=== PATIENT | male | born 1985 | race Caucasian/White ===

== ENCOUNTER 2021-07-19 18:18 | Inpatient (IN) | payer OTHER ==
[~2021-07-19] VITALS: Ht 177.8 cm; Wt 77.9 kg
[2021-07-19] MEDS ORDERED: MAG HYDROX/AL HYDROX/SIMETH 30 ML SUSP UDCUP PO ONE (19:30)
[2021-07-19] MEDS ORDERED: ACETAMINOPHEN 500 MG TABLET PO ONE (19:30)
[2021-07-19] MEDS ORDERED: FAMOTIDINE 20 MG TABLET PO ONE (19:30)
[2021-07-19 19:36] LABS: BASOPHILS % (AUTO) 0.3 % (0.0-2.0); EOSINOPHILS % (AUTO) 1.3 % (1.0-6.0); HEMATOCRIT 41.8 % (41-53); HEMOGLOBIN 14.4 g/dL (13.5-17.5); LYMPHOCYTES # (AUTO) 2.8 K/uL (1.0-4.8); MEAN CORPUSCULAR HEMOGLOBIN 29.1 pg (26.0-34.0); MEAN CORPUSCULAR HGB CONC 34.4 G/dL (31.0-37.0); MEAN CORPUSCULAR VOLUME 85 fL (80-100); MONOCYTES # (AUTO) 0.7 K/uL (0.1-1.0); MONOCYTES % (AUTO) 7.9 % (2.0-9.0); NEUTROPHILS # (AUTO) 5.6 K/uL (1.8-7.7); NEUTROPHILS % (AUTO) 60.5 % (40.0-70.0); PLATELET COUNT (AUTO) 167 K/uL (150-450); RED BLOOD CELL COUNT(AUTO) 4.92 MIL/uL (4.50-5.90); RED CELL DISTRIBUTION WIDTH 13.3 % (11.5-14.5)
[2021-07-19] MEDS ORDERED: HYDR-4527 PO (19:37)
[2021-07-19] MEDS ORDERED: ACET-3385 PO (19:37)
[2021-07-19] MEDS ORDERED: OLAN7.5T22 PO (19:37)
[2021-07-19] MEDS ORDERED: NAPR-1025 PO (19:37)
[2021-07-19] MEDS ORDERED: MULT-1203 PO (19:37)
[2021-07-19 19:43] LABS: ANION GAP 9 mmol/L (8-16); CARBON DIOXIDE 25 mmol/L (22-29); CHLORIDE 103 mmol/L (98-107); CREATININE 1.01 mg/dL (0.60-1.30); GLOMERULAR FILTR. RATE CALC > 60 mL/min (>60); GLUCOSE,RANDOM 104 mg/dL (70-110); POTASSIUM 3.5 mmol/L (3.5-5.1); SODIUM SERUM 137 mmol/L (136-145); UREA NITROGEN, BLOOD 16 mg/dL (7-18)
[2021-07-19 19:49] LABS: COVID AG,FIA SOURCE NASOPHARYNGEAL
[2021-07-19 19:50] LABS: ALANINE AMINOTRANSFERASE 37 U/L (12-78); ALBUMIN 4.3 g/dL (3.4-5.0); ALKALINE PHOSPHATASE 89 U/L (46-116); ASPARTATE AMINOTRANSFERASE 19 U/L (15-37); BILIRUBIN,TOTAL 0.6 mg/dL (0.1-1.0); TOTAL PROTEIN, SERUM 8.3 g/dL (6.4-8.2)
[2021-07-19] MEDS ORDERED: GuaiFENesin/D-METHORPHAN [SUGAR-FREE] 200-20MG/10 ML SYRUP UDCUP PO PRN (20:15)
[2021-07-19] MEDS ORDERED: PETROLATUM,WHITE 28 GM JELLY TP PRN (20:15)
[2021-07-19] MEDS ORDERED: MAGNESIUM HYDROXIDE SUSPENSION 30 ML UDCUP PO PRN (20:15)
[2021-07-19] MEDS ORDERED: ALBUTEROL SULFATE HFA 90 MCG/PUFF 8 GM INHALER IH PRN (20:15)
[2021-07-19] MEDS ORDERED: MAG HYDROX/AL HYDROX/SIMETH ES 30 ML SUSPENSION UDCUP PO PRN (20:15)
[2021-07-19] MEDS ORDERED: LOPERAMIDE HCL 2 MG CAPSULE PO PRN (20:15)
[2021-07-19] MEDS ORDERED: NICOTINE 14 MG/24 HOUR PATCH TD PRN (20:15)
[2021-07-19] MEDS ORDERED: DOCUSATE SODIUM 100 MG CAPSULE PO PRN (20:15)
[2021-07-19] MEDS ORDERED: ONDANSETRON HCL 4 MG TABLET PO PRN (20:15)
[2021-07-19] MEDS ORDERED: CloNIDine HCL 0.1 MG TABLET PO PRN (20:15)
[2021-07-19 22:06] VITALS: BP 129/73
[2021-07-19 22:08] LABS: AMPHET/METH SCREEN,URINE NEGATIVE (NEGATIVE); BARBITURATE SCREEN, URINE NEGATIVE (NEGATIVE); BENZODIAZEPINES SCREEN,URINE NEGATIVE (NEGATIVE); CANNABINOID SCREEN,URINE NEGATIVE (NEGATIVE); COCAINE SCREEN,URINE NEGATIVE (NEGATIVE); METHADONE SCREEN, URINE NEGATIVE (NEGATIVE); OPIATE SCREEN,URINE NEGATIVE (NEGATIVE)
[2021-07-19 22:13] LABS: PHENCYCLIDINE SCREEN,URINE NEGATIVE (NEGATIVE)
[2021-07-20 04:42] VITALS: BP 117/67
[2021-07-20 07:54] VITALS: BP 99/60
[2021-07-20] MEDS: IBUPROFEN 400 MG TABLET PO PRN (09:04)
[2021-07-20 12:06] VITALS: BP 102/66
[2021-07-20 15:18] VITALS: BP 119/67
[2021-07-20] MEDS: ACETAMINOPHEN 325 MG TABLET PO PRN ×2 (15:40→16:58)
[2021-07-20 19:15] VITALS: BP 144/79
[2021-07-20 23:35] VITALS: BP 125/65
[2021-07-21] MEDS: ACETAMINOPHEN 325 MG TABLET PO PRN (00:39)
[2021-07-21 04:00] VITALS: BP 118/70
[2021-07-21 07:38] VITALS: BP 124/64
[2021-07-21 11:26] VITALS: BP 134/60
[2021-07-21 15:52] VITALS: BP 141/79
[2021-07-21] MEDS: IBUPROFEN 400 MG TABLET PO PRN (17:05)
[2021-07-21 19:34] VITALS: BP 136/70
[2021-07-21] MEDS ORDERED: OLANZapine 7.5 MG TABLET PO SCH (21:00)
[2021-07-21 23:53] VITALS: BP 115/56
[2021-07-22 04:14] VITALS: BP 110/58
[2021-07-22 07:48] VITALS: BP 110/56
== END 2021-07-22 14:50 | DRG 885 ==
LOC: EMS 18:21 → 5N 20:07
PROVIDERS: ADMIT Internal Medicine; ATTEND Internal Medicine
DX: F20.0 Paranoid schizophrenia (principal); R45.851 Suicidal ideations; Z20.822 Contact with and (suspected) exposure to COVID-19; K59.00 Constipation, unspecified; F41.9 Anxiety disorder, unspecified; F17.210 Nicotine dependence, cigarettes, uncomplicated
CPT/HCPCS: 80053; 84484; 85025; 93005; 99285; G0480; Q0162